=== PATIENT | male | born 1955 | race Caucasian/White ===

== ENCOUNTER → 2020-09-02 | Outpatient (CLI) | payer MEDICARE, OTHER ==
[~2020-09-02] MED LIST: ASPIR 8181 MG PO; ASPIRIN325 MG PO; CYCLOBENZAPRINE10 MG PO; ECOTRIN81 MG PO; ELIQUIS5 MG PO; FLEXERIL 10 MG10 MG PO; IMDUR ER TAB 3030 MG PO; ISOSORBIDE MONO30 MG PO; LIPITOR TAB 2020 MG PO; LISINOPRIL5 MG PO; LOPRESSOR 25 MG25 MG PO; METOPROLOL TART25 MG PO; MULTAQ 400 MG400 MG PO; NITROGLYCERIN0.4 MG SL; PLAVIX 75 MG TA75 MG PO; PRILOSEC OTC20 MG PO; SOTALOL80 MG PO
[2020-09-02 08:00] LABS: HEMOGLOBIN 9.4 gm/dl (14.0-17.5); RED BLOOD COUNT 4.5 M/UL (4.20-5.50); WHITE BLOOD COUNT 7.4 K/UL (4.5-11.0)
[2020-09-02 08:13] LABS: BUN/CREATININE RATIO 9 (0-10)
== END ==
LOC: CATH 07:19
PROVIDERS: Internal Medicine Cardiovascular Disease
DX: I48.19 Other persistent atrial fibrillation (principal); I25.10 Atherosclerotic heart disease of native coronary artery without angina pectoris; I10 Essential (primary) hypertension; I73.9 Peripheral vascular disease, unspecified; F17.210 Nicotine dependence, cigarettes, uncomplicated; E78.5 Hyperlipidemia, unspecified; K21.9 Gastro-esophageal reflux disease without esophagitis; I42.9 Cardiomyopathy, unspecified; Z95.5 Presence of coronary angioplasty implant and graft; Z79.82 Long term (current) use of aspirin; Z79.01 Long term (current) use of anticoagulants; Z79.899 Other long term (current) drug therapy
CPT/HCPCS: 36415; 80048; 85027; 92960; 93005; J1200; J1742; J2250; J2310; J3010; J7040

== ENCOUNTER 2020-12-24 13:32 | Emergency (ER) | payer MEDICARE, OTHER ==
[2020-12-24 14:20] LABS: HEMOGLOBIN 7.4 gm/dl (14.0-17.5); RED BLOOD COUNT 3.92 M/UL (4.20-5.50)
[2020-12-24 14:42] LABS: BUN/CREATININE RATIO 6 (0-10)
[2020-12-25 00:03] LABS: HEMOGLOBIN 8.7 gm/dl (14.0-17.5); RED BLOOD COUNT 4.13 M/UL (4.20-5.50); WHITE BLOOD COUNT 5.9 K/UL (4.5-11.0)
[2020-12-25 07:34] LABS: HEMOGLOBIN 8.9 gm/dl (14.0-17.5); RED BLOOD COUNT 4.32 M/UL (4.20-5.50); WHITE BLOOD COUNT 5.6 K/UL (4.5-11.0)
[2020-12-25 08:01] LABS: BUN/CREATININE RATIO 7 (0-10)
[2020-12-25 15:00] LABS: HEMOGLOBIN 8.5 gm/dl (14.0-17.5); RED BLOOD COUNT 4.08 M/UL (4.20-5.50); WHITE BLOOD COUNT 5.8 K/UL (4.5-11.0)
== END 2020-12-25 16:00 | disposition home or self-care (01) ==
LOC: ER1 13:32
PROVIDERS: Emergency Medicine
DX: D50.9 Iron deficiency anemia, unspecified (principal); I48.91 Unspecified atrial fibrillation; K62.5 Hemorrhage of anus and rectum; I25.10 Atherosclerotic heart disease of native coronary artery without angina pectoris; I10 Essential (primary) hypertension; I73.9 Peripheral vascular disease, unspecified; J44.9 Chronic obstructive pulmonary disease, unspecified; Z90.49 Acquired absence of other specified parts of digestive tract; Z20.822 Contact with and (suspected) exposure to COVID-19; Z79.01 Long term (current) use of anticoagulants
CPT/HCPCS: 36430; 80053; 82272; 82607; 82728; 82746; 83540; 83550; 85025; 85027; 85045; 85610; 85730; 86850; 86900; 86901; 86920; 93005; 96374; 96376; 99284; C9113; P9016; U0002

== ENCOUNTER → 2021-01-01 | Day surgery (SDC) | payer MEDICARE, OTHER | END | disposition home or self-care (01) | LOC: OR 06:19 | DX: K55.21 Angiodysplasia of colon with hemorrhage (principal); D62 Acute posthemorrhagic anemia; D12.5 Benign neoplasm of sigmoid colon; D12.2 Benign neoplasm of ascending colon; K57.30 Diverticulosis of large intestine without perforation or abscess without bleeding; K64.1 Second degree hemorrhoids; R19.5 Other fecal abnormalities; D68.9 Coagulation defect, unspecified; I10 Essential (primary) hypertension; K21.9 Gastro-esophageal reflux disease without esophagitis; I25.10 Atherosclerotic heart disease of native coronary artery without angina pectoris; F17.200 Nicotine dependence, unspecified, uncomplicated; Z95.818 Presence of other cardiac implants and grafts; Z79.01 Long term (current) use of anticoagulants; Z79.82 Long term (current) use of aspirin; Z79.899 Other long term (current) drug therapy | CPT/HCPCS: J2704; J7040 ==

== ENCOUNTER 2021-07-18 00:29 | Emergency (ER) | payer MEDICARE, OTHER | END 2021-07-18 01:10 | disposition left against medical advice (07) | LOC: ER1 00:29 | DX: R07.9 Chest pain, unspecified (principal); I48.91 Unspecified atrial fibrillation; F17.210 Nicotine dependence, cigarettes, uncomplicated | CPT/HCPCS: 93005; 99281 ==